=== PATIENT | male | born 1965 | race African-American/Black ===

== ENCOUNTER 2018-07-01 11:27 | Emergency (ER) | payer SELFPAY ==
[~2018-07-01] VITALS: Ht 170.2 cm; Wt 99.0 kg
[2018-07-01 11:49] VITALS: BP 169/101
== END 2018-07-01 16:30 | disposition left against medical advice (07) ==
LOC: ER 16:29
DX: I10 Essential (primary) hypertension (principal); D68.0 Von Willebrand disease
CPT/HCPCS: 99281